=== PATIENT | male | born 1955 | race Caucasian/White ===

== ENCOUNTER 2017-09-05 08:36 | Day surgery (SDC) | END 2017-09-05 17:54 | disposition home or self-care (01) ==

== ENCOUNTER 2017-09-15 18:15 | Inpatient (IN) | END 2017-09-20 15:39 | disposition home health service (06) | DRG 863 ==

== ENCOUNTER 2018-01-05 13:51 | Emergency (ER) | END 2018-01-05 23:04 | disposition home or self-care (01) ==